=== PATIENT | male | born 1955 | race Caucasian/White ===

== ENCOUNTER 2017-09-24 06:30 | Day surgery (SDC) | payer OTHER ==
[~2017-09-24 06:30] MED LIST: Buffered Lidocaine 0.9% SYRIN* 5 ML/SYR SYRINGE INTRADERM ONE; Dexamethasone IV* 4 MG/ML 1 ML (4 MG) IV SLOW PU ONE; Famotidine IV* 10 MG/ML 2 ML (20 mg) IV ONE
--- OUTSIDE RECORDS SUMMARY | 2017-09-24 06:35 | XMS REPORT ---
:1955 External Reference #:[id number] Author Organization [place] [employer] Address [address] [address] Phone [phone] Care Team Providers Name Role Phone Milton Jin MD Primary Care Physician Unavailable Payers Type Date Identification Numbers Payment Provider Subscriber Commercial Policy Number: [id number] [facility] Carlos Pulliam Group Number: [id number] [address] PayID: [id number] [place] [address] Medigap Part B Expires: 2016 Policy Number: [employer] Carlos Peres [id number] Shasha Group Number: [id number] [address] PayID: [id number] [place] [address] Medigap Part B Expires: 2013 Policy Number: [employer] Carlos Peres [id number] Shasha PayID: [id number] [address] [place] [address] Problems Date Description Provider Status Onset: 09/04/2017 Full thickness rotator cuff tear Lisa Guajardo MD Active Social History Type Date Description Comments Smoking Patient is a current smoker, smokes some days Allergies, Adverse Reactions, Alerts Date Description Reaction Status Severity Comments 05/01/2014 NKDA active Medications Medication Date Status Form Strength Qnty SIG Indications Ordering Provider Ibuprofen Active Unknown 00 Wellbutrin Active Unknown 00 Cialis Active Tablets 5mg Take One Unknown 00 Tablet By Mouth Every Day Hydrocodone-[place] Active Tablets 5-325mg Take One Unknown taminophen 00 Tablet By Mouth Every 4 Hours as Needed For Up To 10 Days Max No Active 05/01/20 Hx Unknown Medications 14 - 05/01/20 14 Vital Signs Date Vital Result Comment 09/04/2017 Height 67 inches 5'7" Weight 150.00 lb BP Systolic 126 mmHg BP Diastolic 70 mmHg Respiratory Rate 18 /min Pain Level 6 BMI (Body Mass Index) 23.5 kg/m2 07/21/2016 Height 67 inches 5'7" Weight 150.00 lb Pain Level 2 BMI (Body Mass Index) 23.5 kg/m2 01/29/2015 Height 67 inches 5'7" Weight 150.00 lb Pain Level 0 BMI (Body Mass Index) 23.5 kg/m2 12/29/2014 Height 67 inches 5'7" Heart Rate 66 /min BP Systolic 132 mmHg BP Diastolic 83 mmHg 12/16/2014 Height 67 inches 5'7" Weight 155.00 lb Pain Level 5 BMI (Body Mass Index) 24.3 kg/m2 11/18/2014 Height 67 inches 5'7" Weight 155.00 lb Heart Rate 70 /min BP Systolic 129 mmHg BP Diastolic 81 mmHg BMI (Body Mass Index) 24.3 kg/m2 05/01/2014 Height 67 inches 5'7" Weight 155.00 lb Heart Rate 61 /min BP Systolic 117 mmHg BP Diastolic 79 mmHg BMI (Body Mass Index) 24.3 kg/m2 Results Description No Information Procedures Date CPT Code Description Status 12/14/2014 65151 Arthrodesis Great Toe MP JT Completed 12/14/2014 55735 Arthrodesis Great Toe MP JT Completed 06/18/2013 31862 Rad Exam; Foot Comp Completed 06/18/2013 91554 Rad Exam; Foot Comp Completed Encounters Type Date Location Provider CPT E/M Dx Office Visit 07/21/2016 [facility] 59949 M20.42 9:40a [facility] Office Visit 11/18/2014 [facility] 36108 715.17 3:30p [facility] Office Visit 05/01/2014 [facility] 34694 719.46 9:00a [facility] Office Visit 06/18/2013 [facility], 82170 735.2 3:00p [facility] Plan of Care Future Appointment(s):10/05/2017 8:00 am - Lisa [facility]ardo [facility]/04/2017 - Lisa Guajardo, MDM75.121 Complete rotatr-cuff tear /ruptr of r shoulder, not traumaFollow up:Follow up: 10-14 days post op
[2017-09-24] MEDS ORDERED: Dexamethasone IV* 4 MG/ML 1 ML (4 MG) ONE (06:40)
[2017-09-24] MEDS ORDERED: ceFAZolin 2 GM PREMIX (*) 2 GM/50 ML BAG IVPB ONE (06:40)
[2017-09-24] MEDS ORDERED: Famotidine IV* 10 MG/ML 2 ML (20 mg) ONE (06:40)
[2017-09-24] MEDS ORDERED: Bupivacaine 0.25% SDV* 30 ML ONE (07:00)
[2017-09-24] MEDS ORDERED: Scopolamine 1.5 mg* PATCH ONE (07:26)
[2017-09-24] MEDS ORDERED: Propofol* 10 MG/ML 20 ML BTL IV PUSH ONE (07:28)
[2017-09-24] MEDS ORDERED: Ketorolac INJ* 30 MG/ML 1 ML VIAL ONE (07:28)
[2017-09-24] MEDS ORDERED: Midazolam* 1 MG/ML 2 ML VIAL (2 MG) ONE (07:28)
[2017-09-24] MEDS ORDERED: Ondansetron INJ* 2 MG/ML VIAL ONE (07:28)
[2017-09-24] MEDS ORDERED: fentaNYL* 50 MCG/ML 2 ML VIAL (100 MCG VIAL) ONE ×2 (07:28→09:16)
[2017-09-24] MEDS ORDERED: Atracurium* 10 MG/ML 10 ML VIAL ONE (07:33)
[2017-09-24] MEDS ORDERED: ROPIVACAINE 5 MG/ML 30 ML BTL (0.5%) ONE (07:33)
[2017-09-24] MEDS ORDERED: Scopolamine 1.5 mg* PATCH TRANSDERM SCH (08:00)
[2017-09-24] MEDS ORDERED: Scopolamine PATCH Remove* 1 NOTE MISC PATCH OFF SCH (08:00)
[2017-09-24] MEDS ORDERED: fentaNYL* 50 MCG/ML 2 ML VIAL (100 MCG VIAL) IV PRN (08:48)
[2017-09-24] MEDS ORDERED: Ondansetron INJ* 2 MG/ML VIAL IV PRN (08:48)
[2017-09-24] MEDS ORDERED: HYDROmorphone INJ* 1 MG/ML CARPUJECT SYRINGE IV PRN (08:48)
[2017-09-24] MEDS ORDERED: oxyCODONE/Acetamin 5/325 MG* TAB PO PRN (08:48)
[2017-09-24] MEDS ORDERED: DiMENhydriNATE IV* 50 MG/ML VIAL IV PUSH PRN (08:48)
[2017-09-24] MEDS ORDERED: DiMENhydriNATE IV* 50 MG/ML VIAL ONE (10:29)
[2017-09-24 11:06] VITALS: BP 110/67
--- NOTE | 2017-09-25 01:08 | OP ---
CC: PCP, Milton Jin MD * DATE OF OPERATION: 09/24/17 [facility] DATE OF : 53 SURGEON: Lisa Guajardo MD NOVELTY DIPPER: MONIQUE Ash ANESTHESIOLOGIST: Dr. Velasquez. ANESTHESIA: General with interscalene block. PRE-OP DIAGNOSIS: Right shoulder full-thickness rotator cuff tear. POST-OP DIAGNOSIS: Right shoulder full-thickness rotator cuff tear, biceps tendonitis. OPERATIVE PROCEDURE: 1. Right shoulder arthroscopy with extensive glenohumeral debridement including chondroplasty. 2. Subacromial decompression with acromioplasty. 3. Rotator cuff repair, supraspinatus in a double-row fashion. 4. Open subpectoral biceps tenodesis. COMPLICATIONS: None. ESTIMATED BLOOD LOSS: Minimal. IMPLANTS USED: Two 4.75 Healicoil and one MultiFix as well as one 2.8 mm Q-Fix anchor. INDICATIONS: Carlos Pulliam is a 62-year-old male who sustained injury to his shoulder several months ago. He failed conservative management. He is having persistent pain. MRI confirmed a full-thickness large retracted tear. He has elected to proceed with surgical treatment. Risks and benefits of surgery were discussed at length that included, but are not limited to bleeding; infection; damage to nerves, vessels, and surrounding structures; wound nonhealing; persistent pain; need for further surgery; scarring, stiffness, incomplete relief of symptoms, and risks of anesthesia. DESCRIPTION OF THE PROCEDURE: The patient was greeted in the preoperative area by the attending surgeon. Correct extremity was marked and consent was confirmed. The patient was brought to the operative suite and placed in supine position on the operating table. He then underwent interscalene nerve block with the anesthesiologist, after which he underwent general anesthesia with endotracheal intubation. He was placed in left lateral decubitus position with all bony prominences were padded. An axillary roll was placed. The right arm was draped unsterile with 10 pounds of traction. The right shoulder was then prepped and draped in the usual sterile fashion beginning with chlorhexidine soap, scrub, and alcohol wipe and a final prep with ChloraPrep. After appropriate surgical pause indicating site, side, procedure, administration of antibiotics, the standard posterolateral portal was made sharply with an 11 blade. The scope was introduced into the joint. The joint was examined. There was grade 2 changes with unstable flaps. The anterior portal was made in an outside in fashion. The biceps was subluxed and torn, had a high-grade tearing of that biceps tendon itself as well as at the superior labral anchor and it was subluxed. The anterior portal was made in an outside-in fashion. The biceps was then tenotomized. The shaver was used to debride back the anterior, posterior, superior labrum. The undersurface of the supraspinatus was found to have a full thickness tear and the infraspinatus was intact. The subscapularis was identified and had partial thickness tearing, but it was found to be the first 15% or so of the tendon and it was determined that it was unnecessary to repair this. Inferior recess was intact. There were no loose bodies evident. There was abundant synovitis in the shoulder itself. Maximum of the debridement was completed. Attention was directed to the subacromial space. Chondroplasty was done at the unstable flaps of the glenoid as well as the humeral head. Once the debridement was complete, the attention was directed to subacromial space. The scope was positioned in the subacromial space. The bursa was removed using a shaver. The undersurface of the acromion was identified and demonstrated an anterolateral spur that was so much sharp and large. The electrocautery was used to skeletonize this and then a 4-0 oval braeden was used to do an acromioplasty and this allowed more room for mobilization of the rotator cuff. The rotator cuff was torn in an L-shaped configuration involving the anterior aspect of the supraspinatus footprint that conjoined with the subscapularis as well as the anterior portion of the normal supraspinatus footprint. The infraspinatus was intact. The cuff was then carefully mobilized. The tissue was very hyperemic. Once the appropriate rasp pattern oriental orthodox was identified , the greater tuberosity was prepared using electrocautery device, the shaver as well as the braeden to gently decorticate and the rasp. Once this was done, two 4.75 Healicoil anchors were placed with excellent purchase. 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 There was no evidence of fracture. The sutures were then passed in a horizontal mattress configuration through the supraspinatus tendon in a horizontal mattress configuration. The very last suture was placed in a simple configuration. Once all of the sutures were passed, these were then tied down sequentially using arthroscopic knot tying technique. This helped to reapproximate the rotator cuff and fully restore to the footprint. The excess sutures were then passed through a separate anchor for lateral row fixation, which was done with a knotless MultiFix anchor. This was placed with excellent purchase. Final images were obtained. The shoulder was taken through gentle range of motion and found to be in good position. The wounds were copiously irrigated. Attention was directed to the biceps. At that point to the right side, the anterior shoulder was reprepped with ChloraPrep. A 15-blade was used to make an incision allowing the biceps encompassing inferior two-thirds of the pec. The soft tissues were carefully dissected and the pec was retracted. The biceps was then brought through the wound and found to have again tendinopathy as well as tearing and synovitis. The groove was then prepared in usual fashion beginning with electrocautery device. The red ball rasp osteotome for bony bleeding bed and then the Q-Fix anchor was drilled unicortically and passed with excellent purchase. The sutures were passed through the tendon in Marquise-Ryan type configuration approximately 1 cm proximal to the biceps musculotendinous junction. The excess stump was then sharply excised. The biceps were then shallow back to the wounds. The wounds were copiously irrigated with sterile saline. The anterior wound was closed in layers with 2- 0 Vicryl and 3-0 Monocryl. The portals were closed with 3-0 nylon. Sterile dressings were applied. The anterior aspect of the shoulder was injected with 20 cc of 0.25% Marcaine plain. Sterile dressings, Cryo/Cuff and UltraSling were placed. He was awoken from anesthesia and transferred to PACU in stable condition. POSTOPERATIVE PLAN: He will be nonweightbearing. He will be in a sling for 6 weeks. He will be allowed range of motion with elbow, wrist, and hand. He will be discharged on pain medications, antibiotics. DVT ppx was discussed with the patient but deferred due to no personal or family history. I will see the patient back in 10 to 14 days. [id number]/[facility] #: [id number]/[facility] #: [id number] MTDD
--- NOTE | 2017-09-25 03:49 | OP ---
CC: PCP OPERATIVE REPORT: ADDENDUM: DATE OF OPERATION: 09/24/17 DATE OF : 53 DESCRIPTION OF THE PROCEDURE: The patient was greeted in the preoperative area by the attending surgeon. Correct extremity was marked and consent was confirmed. The patient was brought to the operative suite and placed in supine position on the operating table. He then underwent interscalene nerve block with the anesthesiologist, after which he underwent general anesthesia with endotracheal intubation. He was placed in left lateral decubitus position with all bony prominences were padded. An axillary roll was placed. The right arm was draped unsterile with 10 pounds of traction. The right shoulder was then prepped and draped in the usual sterile fashion beginning with chlorhexidine soap, scrub, and alcohol wipe and a final prep with ChloraPrep. After appropriate surgical pause indicating site, side, procedure, administration of antibiotics, the standard posterolateral portal was made sharply with an 11 blade. The scope was introduced into the joint. The joint was examined. There was grade 2 changes with unstable flaps. The anterior portal was made in an outside in fashion. The biceps was subluxed and torn, had a high-grade tearing of that biceps tendon itself as well as at the superior labral anchor and it was subluxed. The anterior portal was made in an outside-in fashion. The biceps was then tenotomized. The shaver was used to debride back the anterior, posterior, superior labrum. The undersurface of the supraspinatus was found to have a full thickness tear and the infraspinatus was intact. The subscapularis was identified and had partial thickness tearing, but it was found to be the first 15% or so of the tendon and it was determined that it was unnecessary to repair this. Inferior recess was intact. There were no loose bodies evident. There was abundant synovitis in the shoulder itself. Maximum of the debridement was completed. Attention was directed to the subacromial space. Chondroplasty was done at the unstable flaps of the glenoid as well as the humeral head. Once the debridement was complete, the attention was directed to subacromial space. The scope was positioned in the subacromial space. The bursa was removed using a shaver. The undersurface of the acromion was identified and demonstrated an anterolateral spur that was so much sharp and large. The electrocautery was used to skeletonize this and then a 4-0 oval braeden was used to do an acromioplasty and this allowed more room for mobilization of the rotator cuff. The rotator cuff was torn in an L-shaped configuration involving the anterior aspect of the supraspinatus footprint that conjoined with the subscapularis as well as the anterior portion of the normal supraspinatus footprint. The infraspinatus was intact. The cuff was then carefully mobilized. The tissue was very hyperemic. Once the appropriate rasp pattern yazidi was identified , the greater tuberosity was prepared using electrocautery device, the shaver as well as the braeden to gently decorticate and the rasp. Once this was done, two 4.75 Healicoil anchors were placed with excellent purchase. 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 There was no evidence of fracture. The sutures were then passed in a horizontal mattress configuration through the supraspinatus tendon in a horizontal mattress configuration. The very last suture was placed in a simple configuration. Once all of the sutures were passed, these were then tied down sequentially using arthroscopic knot tying technique. This helped to reapproximate the rotator cuff and fully restore to the footprint. The excess sutures were then passed through a separate anchor for lateral row fixation, which was done with a knotless MultiFix anchor. This was placed with excellent purchase. Final images were obtained. The shoulder was taken through gentle range of motion and found to be in good position. The wounds were copiously irrigated. Attention was directed to the biceps. At that point to the right side, the anterior shoulder was reprepped with ChloraPrep. A 15-blade was used to make an incision allowing the biceps encompassing inferior two-thirds of the pec. The soft tissues were carefully dissected and the pec was retracted. The biceps was then brought through the wound and found to have again tendinopathy as well as tearing and synovitis. The groove was then prepared in usual fashion beginning with electrocautery device. The red ball rasp osteotome for bony bleeding bed and then the Q-Fix anchor was drilled unicortically and passed with excellent purchase. The sutures were passed through the tendon in Marquise-Ryan type configuration approximately 1 cm proximal to the biceps musculotendinous junction. The excess stump was then sharply excised. The biceps were then shallow back to the wounds. The wounds were copiously irrigated with sterile saline. The anterior wound was closed in layers with 2- 0 Vicryl and 3-0 Monocryl. The portals were closed with 3- 0 nylon. Sterile dressings were applied. The anterior aspect of the shoulder was injected with 20 cc of 0.25% Marcaine plain. Sterile dressings, Cryo/Cuff and UltraSling were placed. He was awoken from anesthesia and transferred to PACU in stable condition. POSTOPERATIVE PLAN: He will be nonweightbearing. He will be in a sling for 6 weeks. He will be allowed range of motion with elbow, wrist, and hand. He will be discharged on pain medications, antibiotics. I will see the patient back in 10 to 14 days. [id number]/[facility] #: [id number] MTDD
== END 2017-09-24 10:59 | disposition home or self-care (01) ==
LOC: OREAST 06:30
PROVIDERS: ATTEND Orthopaedic Surgery
DX: M75.121 Complete rotator cuff tear or rupture of right shoulder, not specified as traumatic (principal); X58.XXXA Exposure to other specified factors, initial encounter; Y93.89 Activity, other specified; Z85.46 Personal history of malignant neoplasm of prostate; F32.9 Major depressive disorder, single episode, unspecified; F17.200 Nicotine dependence, unspecified, uncomplicated
CPT/HCPCS: A9270-GY; C1713; C1776; J0690; J1100; J1240; J1885; J2250; J2405; J2704; J2795; J3010

== ENCOUNTER 2017-10-15 12:44 | Emergency (ER) | payer OTHER ==
[2017-10-15 12:55] VITALS: BP 127/79
--- NOTE | 2017-10-15 13:01 | UC ---
Upper Extremity HPI - HPI Summary HPI Summary: 62 Y/O male presents with pain "dull aching" in right arm and shoulder after ground level fall onto buttocks on 10/13/17. Recent surgery to R arm, incisions healed with steri strips intact. No redness, swelling or reports of fall on arm. Has been taking Ibuprofen without relief of pain. Medical history and medications reviewed at this visit. - History of Current Complaint Stated Complaint: ARM INJURY Time Seen by Provider: 10/15/17 12:48 Hx Obtained From: Patient Onset/Duration: Sudden Onset, Lasting Days Severity Initially: Mild Severity Currently: Severe Pain Intensity: 7 Pain Scale Used: 0-10 Numeric Location Of Pain: Is Discrete @ - Right shoulder and underarm Aggravating Factor(s): Movement Alleviating Factor(s): Nothing Associated Signs And Symptoms: Positive: Negative - Risk Factors Non-Orthopedic Risk Factor: Negative DVT Risk Factors: Negative Septic Arthritis Risk Factor: Negative - Allergies/Home Medications Allergies/Adverse Reactions: Allergies Allergy/AdvReac Type Severity Reaction Status Date / Time No Known Allergies Allergy Verified 09/24/17 06:43 Home Medications: Home Medications Ibuprofen [Advil] 200 mg PO 10/15/17 [History] PMH/Surg Hx/FS Hx/Imm Hx Previously Healthy: Yes - Surgical History Surgical History: Yes Surgery Procedure, Year, and Place: LT KNEE - OPEN PETELLAR RECON- 1977. APPENDECTOMY. TONSILECTOMY. HERNIA REPAIR. BILATERAL LENS IMPLANT FOR CATARACTS. 2017 PROSTATE [place]. 02/20/17 PROSTATE REMOVE. RIGHT GREAT TOE FUSION - Social History Alcohol Use: Daily Alcohol Amount: 1 DRINK PER NIGHT Substance Use Type: None, Prescribed Smoking Status (MU): Former Smoker Type: Cigarettes Amount Used/How Often: OCCASIONALLY X 40 YEARS Have You Smoked in the Last Year: No When Did the Patient Quit Smoking/Using Tobacco: 1986 Review of Systems Constitutional: Negative Skin: Negative Eyes: Negative ENT: Negative Respiratory: Negative Cardiovascular: Negative Gastrointestinal: Negative Genitourinary: Negative Motor: Negative Neurovascular: Negative Musculoskeletal: Negative Neurological: Negative Psychological: Negative Is Patient Immunocompromised?: No All Other Systems Reviewed And Are Negative: Yes Physical Exam Triage Information Reviewed: Yes Appearance: Well-Appearing Vital Signs Reviewed: Yes Respiratory Exam: Normal Respiratory: Positive: Lungs clear Cardiovascular Exam: Normal Musculoskeletal: Positive: Other: - Not able to assess range of motion due to limitations from surgery Neurological Exam: Normal Psychological Exam: Normal Skin Exam: Normal Upper Extremity Course/Dx - Differential Dx/Diagnosis Differential Diagnosis/HQI/PQRI: Contusion, Strain, Sprain Provider Diagnoses: Strain Discharge - Discharge Plan Condition: Stable Disposition: HOME Patient Education Materials: Shoulder Sprain (ED) Referrals: Milton Jin MD [Primary Care Provider] - Additional Instructions: Follow up with your surgeon in the morning. Continue Ibuprofen with food for mild to moderate pain. Take [place] for moderate to severe pain. May return to Urgent care as needed. Do not take [place] when driving.
[2017-10-15] MEDS ORDERED: HYDROcodone/ACETAMIN 5-325 MG* 1 TAB PO ONE ×2 (13:15→13:20)
== END 2017-10-15 13:47 | disposition home or self-care (01) ==
LOC: UCEAST 12:44
DX: S43.401A Unspecified sprain of right shoulder joint, initial encounter (principal); W18.30XA Fall on same level, unspecified, initial encounter; Y93.9 Activity, unspecified; Y92.9 Unspecified place or not applicable; Y99.9 Unspecified external cause status; Z72.89 Other problems related to lifestyle; Z87.891 Personal history of nicotine dependence
CPT/HCPCS: 99212; G0463